=== PATIENT | male | born 1995 | race Caucasian/White ===

== ENCOUNTER 2017-02-14 13:53 | Emergency (ER) | payer BC | END 2017-02-14 17:29 | disposition home or self-care (01) | LOC: TRA 13:53 | PROC: 3E0234Z Introduction of Serum, Toxoid and Vaccine into Muscle, Percutaneous Approach (ICD-10-PCS; principal; 2017-02-14) | DX: S87.81XA Crushing injury of right lower leg, initial encounter (principal); V48.2XXA Person on outside of car injured in noncollision transport accident in nontraffic accident, initial encounter; Z23 Encounter for immunization | CPT/HCPCS: 73590; 80048; 81003; 82150; 82550; 83690; 85025; 86850; 86900; 86901; G0480; J7030 ==